=== PATIENT | female | born 2000 | race African-American/Black ===

== ENCOUNTER 2022-06-16 03:02 | Emergency (ER) | payer MEDICAID ==
[~2022-06-16] VITALS: Ht 170.2 cm; Wt 58.3 kg
[2022-06-16] MEDS ORDERED: CEFTRIAXONE SODIUM 500 MG/VIAL IM ONE (04:00)
[2022-06-16] MEDS ORDERED: AZITHROMYCIN 500 MG TABLET PO ONE (04:00)
[2022-06-16 04:10] LABS: CLARITY URINE CLEAR (CLEAR); COLOR URINE YELLOW (YELLOW); KETONES URINE NEGATIVE (NEGATIVE); LEUKOCYTE ESTERASE URINE NEGATIVE (NEGATIVE); NITRITE URINE NEGATIVE (NEGATIVE); OCCULT BLOOD URINE NEGATIVE (NEGATIVE); PROTEIN URINE NEGATIVE (NEGATIVE); SPECIFIC GRAVITY URINE 1.022 (1.005-1.030)
[2022-06-16] MEDS ORDERED: DIF15 MT (04:20)
[2022-06-16 04:30] VITALS: BP 125/63
[2022-06-18 07:12] LABS: NEISSERIA GONORRHOEAE NAA Negative (Negative)
== END 2022-06-16 04:30 | disposition home or self-care (01) ==
LOC: ER 03:02
DX: Z20.2 Contact with and (suspected) exposure to infections with a predominantly sexual mode of transmission (principal); B37.9 Candidiasis, unspecified
CPT/HCPCS: 81003; 81025; 87491; 87591; 96372; 99283; J0696